=== PATIENT | female | born 1980 | race Caucasian/White ===

== ENCOUNTER 2017-01-16 23:22 | Inpatient (IN) | payer MEDICAID, OTHER ==
[~2017-01-16] VITALS: Ht 170.2 cm; Wt 78.9 kg
[2017-01-16] MEDS ORDERED: IV NS 0.9% 1,000 ML ONE (23:49)
[2017-01-16] MEDS ORDERED: IV SET PRIMARY 1 EA INFUS.SET MC ONE (23:49)
[2017-01-17] LABS: BASOPHILS % (AUTO) 0.9 % (0.0-2.0); EOSINOPHILS % (AUTO) 0.4 % (0.0-6.0); HEMATOCRIT 40 % (33-45); HEMOGLOBIN 12.8 g/dL (11.5-14.8); LYMPHOCYTES # (AUTO) 1.9 /CMM (0.8-4.8); LYMPHOCYTES % (AUTO) 39.7 % (20.0-44.0); MEAN CORPUSCULAR HEMOGLOBIN 27 PG (26.0-33.0); MEAN CORPUSCULAR HGB CONC 32 g/dl (31.0-36.0); MEAN CORPUSCULAR VOLUME 84 fL (82-100); MONOCYTES # (AUTO) 0.4 /CMM (0.1-1.30); MONOCYTES % (AUTO) 8.6 % (2.0-12.0); NEUTROPHILS # (AUTO) 2.5 /CMM (1.8-8.9); NEUTROPHILS % (AUTO) 50.4 % (43.0-81.0); PLATELET COUNT (AUTO) 276 /CMM (150-450); RDW COEFFICIENT OF VARIATION 17.1 (11.5-15.0); RED BLOOD CELL COUNT(AUTO) 4.68 MIL/uL (4.0-5.2); WHITE BLOOD COUNT (AUTO) 4.9 K/uL (4.3-11.0)
[2017-01-17 00:09] LABS: CALCIUM, SERUM 9.1 mg/dL (8.5-10.1); CARBON DIOXIDE 31 mmol/L (21-32); CHLORIDE 106 mmol/L (98-107); CREATININE 2.4 mg/dL (0.6-1.3); GFR 23 mL/min (>60); GLUCOSE 131 mg/dL (74-106); POTASSIUM 4.2 mmol/L (3.5-5.1); SODIUM SERUM 142 mmol/L (136-145); UREA NITROGEN, BLOOD 4 mg/dL (7-18)
[2017-01-17 00:15] LABS: INR 1.08 (0.87-1.13); PROTHROMBIN TIME 11.6 SECS (9.5-12.7)
[2017-01-17 00:17] LABS: TROPONIN I < 0.017 ng/mL (0.00-0.056)
[2017-01-17 00:18] LABS: ALANINE AMINOTRANSFERASE 28 U/L (12-78); ALBUMIN 4.1 g/dL (3.4-5.0); ALKALINE PHOSPHATASE 85 U/L (46-116); ASPARTATE AMINOTRANSFERASE 14 U/L (15-37); BILIRUBIN,DIRECT 0.1 mg/dL (0.0-0.2); BILIRUBIN,TOTAL 0.3 mg/dL (0.2-1.0); TOTAL PROTEIN, SERUM 7.8 g/dL (6.4-8.2)
[2017-01-17] MEDS ORDERED: MECLIZINE HCL 25 MG TABLET ONE (00:47)
[2017-01-17] MEDS ORDERED: MECLIZINE HCL 25 MG TABLET PO ONE (01:00)
[2017-01-17] MEDS ORDERED: IV NS 0.9% 1,000 ML BAG IV ONE ×3 (01:00→03:00)
[2017-01-17] MEDS ORDERED: IV SET PRIMARY 1 EA INFUS.SET MC ONE ×2 (01:05→02:42)
[2017-01-17] MEDS ORDERED: IV NS 0.9% 1,000 ML ONE ×2 (01:05→02:42)
[2017-01-17] MEDS ORDERED: DIAZEPAM 5 MG/ML 2 ML DISP.SYRIN ONE (02:42)
--- NOTE | 2017-01-17 02:55 | NUR ---
PT STATES SHE IS STILL FEELING DIZZY, MADE AWARE WILL CONTINUE TO MONITOR.
[2017-01-17] MEDS ORDERED: DIAZEPAM 5 MG/ML 2 ML DISP.SYRIN IV ONE (03:00)
--- NOTE | 2017-01-17 04:09 | NUR ---
PT STATES SHE IS STILL FEELING THE SAME, VSS, PT ON MONITOR, MD MADE AWARE WILL CONTINUE TO MONITOR.
[2017-01-17] MEDS ORDERED: LORA1TAB82 PO (04:31)
[2017-01-17] MEDS ORDERED: TEMA30CA5 PO (04:31)
[2017-01-17] MEDS ORDERED: LITH600C PO (04:31)
[2017-01-17] MEDS ORDERED: LITH300T3 PO (04:31)
--- NOTE | 2017-01-17 05:00 | NUR ---
RN ADMITTING NOTES Pt IS A/OX4, VERBAL, ABLE TO MAKE NEEDS KNOWN. NO S/S OF ACUTE DISTRESS OR SOB NOTED. C/O HEADACHE DESPITE MEDICATION GIVEN IN ER. IV ACCESS ON RAC #18G. SAFETY MEASURES IN PLACE. BED LOW, LOCKED, HOB ELEVATED, SIDE RAILS UP, CALL LIGHT AND BEDSIDE TABLE WITHIN REACH. WILL CONTINUE TO MONITOR Pt FOR SAFETY.
[2017-01-17 05:30] VITALS: BP 126/71
[2017-01-17] MEDS ORDERED: IV SET PRIMARY PUMP SET 1 EA INFUS.SET MC ONE ×2 (05:42→09:00)
--- NOTE | 2017-01-17 06:55 | NUR ---
RN CLOSING NOTES NO SIGNIFICANT CHANGES DURING THE NIGHT. NO S/S OF ACUTE DISTRESS OR SOB NOTED. SAFETY MEASURES IN PLACE. ALL NEEDS MET AND ATTENDED TO. WILL ENDORSE TO DAYSHIFT RN FOR Pt's KALE.
[2017-01-17 07:14] LABS: BASOPHILS % (AUTO) 0.7 % (0.0-2.0); EOSINOPHILS % (AUTO) 0.1 % (0.0-6.0); HEMATOCRIT 35 % (33-45); HEMOGLOBIN 11.7 g/dL (11.5-14.8); LYMPHOCYTES # (AUTO) 2.3 /CMM (0.8-4.8); LYMPHOCYTES % (AUTO) 37.6 % (20.0-44.0); MEAN CORPUSCULAR HEMOGLOBIN 28 PG (26.0-33.0); MEAN CORPUSCULAR HGB CONC 33 g/dl (31.0-36.0); MEAN CORPUSCULAR VOLUME 84 fL (82-100); MONOCYTES # (AUTO) 0.6 /CMM (0.1-1.30); NEUTROPHILS # (AUTO) 3.2 /CMM (1.8-8.9); NEUTROPHILS % (AUTO) 52.6 % (43.0-81.0); PLATELET COUNT (AUTO) 219 /CMM (150-450); RDW COEFFICIENT OF VARIATION 17.3 (11.5-15.0); WHITE BLOOD COUNT (AUTO) 6.2 K/uL (4.3-11.0)
[2017-01-17 07:16] LABS: CALCIUM, SERUM 8.1 mg/dL (8.5-10.1); CREATININE 2.1 mg/dL (0.6-1.3); POTASSIUM 3.6 mmol/L (3.5-5.1)
[2017-01-17 08:00] VITALS: BP 141/75
[2017-01-17 08:48] LABS: THYROID STIMULATING HORMONE 1.517 uIU/mL (0.358-3.74)
[2017-01-17] MEDS ORDERED: ACETAMINOPHEN 325 MG TABLET PO PRN (09:00)
[2017-01-17] MEDS ORDERED: LEVOFLOXACIN (500MG) 500 MG TABLET PO ONE (09:00)
[2017-01-17] MEDS ORDERED: ONDANSETRON HCL/PF 4 MG/2 ML VIAL IV PRN (09:00)
[2017-01-17] MEDS ORDERED: LITHIUM CARBONATE (300 MG CAP) 300 MG CAPSULE PO SCH ×2 (09:00→18:00)
[2017-01-17] MEDS ORDERED: IV NS 0.9% 1,000 ML IV PRN ×2 (09:00→14:30)
[2017-01-17] MEDS ORDERED: LORAZEPAM 1 MG TABLET PO SCH (09:00)
[2017-01-17] MEDS ORDERED: MECLIZINE HCL 12.5 MG TABLET PO PRN (09:00)
--- NOTE | 2017-01-17 09:55 | NUR ---
BAKERY DEMONSTRATOR NOTE Pt resting in bed. AOx4, VSS on RA. Took orthostatics, BP 138/72 laying down, 106/64 standing. Dizzy when lying in bed and standing. Voids in bathroom. US kidneys done, UA collected, will send to lab. IV NS bolus running, will hang KCL at 100ml/hr after. Will cont to monitor.
[2017-01-17 10:49] LABS: APPEARANCE,URINE CLEAR (CLEAR); BILIRUBIN,URINE NEGATIVE (NEGATIVE); BLOOD, URINE NEGATIVE Ery/uL (NEGATIVE); COLOR,URINE YELLOW (YELLOW); KETONES,URINE NEGATIVE (NEGATIVE); LEUKOCYTE ESTERASE ,URINE NEGATIVE (NEGATIVE); NITRITE, URINE NEGATIVE (NEGATIVE); PROTEIN,URINE NEGATIVE (NEGATIVE); UGLUCOSE NEGATIVE (NEGATIVE); UROBILINOGEN,URINE 0.2 EU/dL (0.2)
[2017-01-17] MEDS: Potassium Chloride 20 MEQ in IV NS 0.9% 1,000 ML IV SCH ×2 (11:08→15:52)
[2017-01-17 12:00] VITALS: BP 129/74
[2017-01-17 14:28] LABS: CALCIUM, SERUM 7.8 mg/dL (8.5-10.1); POTASSIUM 3.6 mmol/L (3.5-5.1)
--- NOTE | 2017-01-17 16:48 | NUR ---
DISCHARGE NOTE Pt reports still feeling dizzy after 1L bolus. MD ordered another 1L NS bolus, then to discharge pt. Pt reports same dizziness after second 1L bolus, but is okay with being discharged home. Educated pt on taking things slow, and to not change positions quickly. Provided instructions to follow up with PCP for renal function and to get Levaquin script. IV removed. Taxi voucher provided, will walk pt downstairs to wait for taxi.
[2017-01-17] MEDS ORDERED: TEMAZEPAM 15 MG CAPSULE PO PRN (22:00)
[2017-01-18] MEDS ORDERED: LEVOFLOXACIN (250MG) 250 MG TABLET PO SCH (09:00)
== END 2017-01-17 17:10 | disposition home or self-care (01) | DRG 248 ==
LOC: ER 23:24 → TELE 01-17 04:27
PROVIDERS: ADMIT Internal Medicine; ATTEND Internal Medicine
DX: A04.9 Bacterial intestinal infection, unspecified (principal); N17.9 Acute kidney failure, unspecified; E86.0 Dehydration; I95.1 Orthostatic hypotension; F31.9 Bipolar disorder, unspecified; Z87.891 Personal history of nicotine dependence
CPT/HCPCS: 36415; 70450-TC; 71010-TC; 76770-TC; 80048-TC; 80076-TC; 81000-TC; 82533; 84443-TC; 84484-TC; 84703-TC; 85025-TC; 85730-TC; 87081-TC; A4606; J3360; J3480; J7030; J8597; Z7610

== ENCOUNTER 2017-08-13 15:41 | Emergency (ER) | payer MEDICAID ==
[~2017-08-13] VITALS: Ht 167.6 cm; Wt 124.7 kg
[~2017-08-13 15:41] MED LIST: LITH300T3 PO; LITH600C PO; LORA1TAB82 PO; TEMA30CA5 PO
--- NOTE | 2017-08-13 15:45 | NUR ---
AAOX3, BIBRA 60 FROM HOME C/O ANXIETY AND PANIC ATTACK. RR IS EVEN AND UNLABORED WITH. TACHYCARDIC 146. SKIN IS WARM AND DRY. AWAITING MD FOR EVAL. DENIES ANY CP.
[2017-08-13] MEDS ORDERED: ONDANSETRON HCL/PF 4 MG/2 ML VIAL ONE (16:10)
--- NOTE | 2017-08-13 16:20 | NUR ---
NEW IV STARTED ON RAC, 20 G. BLOOD DRAWN AND SENT TO LAB. PATIENT MEDICATED PER MD ORDERS.
[2017-08-13 16:26] LABS: HEMATOCRIT 37 % (33-45); HEMOGLOBIN 12.3 g/dL (11.5-14.8); MEAN CORPUSCULAR HEMOGLOBIN 26 PG (26.0-33.0); MEAN CORPUSCULAR HGB CONC 33 g/dl (31.0-36.0); MEAN CORPUSCULAR VOLUME 80 fL (82-100); PLATELET COUNT (AUTO) 335 /CMM (150-450); RDW COEFFICIENT OF VARIATION 16.9 (11.5-15.0); RED BLOOD CELL COUNT(AUTO) 4.65 MIL/uL (4.0-5.2); WHITE BLOOD COUNT (AUTO) 9.1 K/uL (4.3-11.0)
[2017-08-13] MEDS ORDERED: IV NS 0.9% 1,000 ML BAG IV ONE ×2 (16:30→18:30)
[2017-08-13] MEDS ORDERED: ONDANSETRON HCL/PF 4 MG/2 ML VIAL IVP ONE (16:30)
--- NOTE | 2017-08-13 16:30 | NUR ---
URINE OBTAINED AND SENT TO LAB.
[2017-08-13 16:42] LABS: ALCOHOL, BLOOD < 3 mg/dL (0-0); CALCIUM, SERUM 8.7 mg/dL (8.5-10.1); CREATININE 2.4 mg/dL (0.6-1.3); POTASSIUM 3.7 mmol/L (3.5-5.1)
[2017-08-13 16:48] LABS: ALBUMIN 4.1 g/dL (3.4-5.0); BILIRUBIN,TOTAL 0.3 mg/dL (0.2-1.0); TOTAL PROTEIN, SERUM 8.3 g/dL (6.4-8.2)
[2017-08-13 16:55] LABS: THYROID STIMULATING HORMONE 0.336 uIU/mL (0.358-3.74)
[2017-08-13] MEDS ORDERED: MORPHINE SULFATE INJ 2 MG/ML DISP.SYRIN ONE (18:14)
[2017-08-13] MEDS ORDERED: LORAZEPAM INJ 2 MG/ML VIAL ONE (18:15)
[2017-08-13] MEDS ORDERED: LORAZEPAM INJ 2 MG/ML VIAL IV ONE (18:30)
[2017-08-13] MEDS ORDERED: MORPHINE SULFATE INJ 2 MG/ML DISP.SYRIN IV ONE (18:30)
[2017-08-13 18:48] LABS: LYMPHOCYTES % (MANUAL) 19 % (16-48); MONOCYTES % (MANUAL) 4 % (0-11.0); NEUTROPHILS % (MANUAL) 77 (42-76)
--- NOTE | 2017-08-13 19:01 | NUR ---
REPORT GIVEN TO SUSAN MICHELLE FOR KALE.
--- NOTE | 2017-08-13 19:02 | NUR ---
RECEIVED REPORT FROM MIGUEL ANGEL ROQUE FOR KALE.
--- NOTE | 2017-08-13 19:51 | NUR ---
DR. MAN AT BEDSIDE SPEAKING TO PT REGARDING RESULTS.
--- NOTE | 2017-08-13 20:48 | NUR ---
IV removed. Catheter intact and site benign. Pressure and 4x4 applied to site. No bleeding noted. Patient discharged to home in stable condition. Written and verbal after care instructions given. Patient verbalizes understanding of instruction. ambulatory with a steady gait. instructed not to drive. pt verbalize understanding.
[2017-08-13 20:49] VITALS: BP 128/63
== END 2017-08-13 20:50 | disposition home or self-care (01) ==
LOC: ER 15:44
DX: F41.9 Anxiety disorder, unspecified (principal); E05.90 Thyrotoxicosis, unspecified without thyrotoxic crisis or storm; F31.9 Bipolar disorder, unspecified; F10.10 Alcohol abuse, uncomplicated; C53.9 Malignant neoplasm of cervix uteri, unspecified; Z90.49 Acquired absence of other specified parts of digestive tract
CPT/HCPCS: 36415; 80048; 80076; 80305; 83690; 84703; 84443; 85025; 96361; 96374; 96375; 99284; A4606; G0480; J2060; J2270; J2405; J7030 ×2; Z7610